=== PATIENT | female | born 1950 | race Caucasian/White ===

== ENCOUNTER 2024-02-05 10:19 | Emergency (ER) | payer MEDICARE, BC ==
[2024-02-05] MEDS ORDERED: methylPREDNISolone Sod Succ/PF 125 MG/2 ML VIAL ONE (11:04)
== END 2024-02-05 11:17 | disposition home or self-care (01) ==
LOC: NAV ERS 10:19
DX: M25.552 Pain in left hip (principal); M25.551 Pain in right hip; E11.9 Type 2 diabetes mellitus without complications; I10 Essential (primary) hypertension; E78.00 Pure hypercholesterolemia, unspecified; Z79.899 Other long term (current) drug therapy; Z79.84 Long term (current) use of oral hypoglycemic drugs
CPT/HCPCS: 96372; 99283; J2919

== ENCOUNTER 2024-02-26 13:29 | Emergency (ER) | payer MEDICARE, BC ==
[2024-02-26] MEDS ORDERED: Ketorolac Tromethamine 30 MG (1 mL) VIAL ONE (14:12)
[2024-02-26] MEDS ORDERED: methylPREDNISolone Sod Succ/PF 125 MG/2 ML VIAL ONE (14:13)
== END 2024-02-26 14:33 | disposition home or self-care (01) ==
LOC: NAV ERS 13:29
DX: M54.16 Radiculopathy, lumbar region (principal); I10 Essential (primary) hypertension
CPT/HCPCS: J1885; J2919; 96372

== ENCOUNTER 2024-03-18 10:16 | Emergency (ER) | payer MEDICARE, BC ==
[2024-03-18] MEDS ORDERED: methylPREDNISolone Sod Succ/PF 125 MG/2 ML VIAL ONE (11:01)
== END 2024-03-18 11:13 | disposition home or self-care (01) ==
LOC: NAV ERS 10:16
DX: M25.552 Pain in left hip (principal); M25.551 Pain in right hip; E11.9 Type 2 diabetes mellitus without complications; I10 Essential (primary) hypertension; E78.00 Pure hypercholesterolemia, unspecified; Z79.84 Long term (current) use of oral hypoglycemic drugs; Z79.899 Other long term (current) drug therapy
CPT/HCPCS: 96372; 99283; J2919

== ENCOUNTER 2024-04-04 08:43 | Emergency (ER) | payer MEDICARE, BC ==
[2024-04-04] MEDS ORDERED: methylPREDNISolone Acetate 40 mg/ml Vial ONE (09:22)
== END 2024-04-04 10:09 | disposition home or self-care (01) ==
LOC: NAV ERS 08:43
DX: J10.1 Influenza due to other identified influenza virus with other respiratory manifestations (principal); G89.29 Other chronic pain; E11.9 Type 2 diabetes mellitus without complications; E78.00 Pure hypercholesterolemia, unspecified; I10 Essential (primary) hypertension; Z79.899 Other long term (current) drug therapy; Z79.84 Long term (current) use of oral hypoglycemic drugs
CPT/HCPCS: 71046; 87428; J1010; 96372